=== PATIENT | male | born 1960 | race Caucasian/White ===

== ENCOUNTER 2017-03-01 12:37 | Emergency (ER) | payer BC, MEDICAID ==
[~2017-03-01] VITALS: Ht 177.8 cm; Wt 73.0 kg
[~2017-03-01 12:37] MED LIST: HYDR10TA16 PO; IBUP200C PO; ZANA4CAP PO
[2017-03-01 12:51] VITALS: BP 129/77; PULSE 102; RESP 17; TEMP 98.4; O2SAT 96
[2017-03-01] MEDS ORDERED: SODIUM CHLOR 0.9% 1000 ML INJ 1,000 ML IV SCH (13:59)
[2017-03-01] MEDS ORDERED: DICYCLOMINE HCL 20 MG/2 ML VIAL IM ONE (14:00)
[2017-03-01] MEDS ORDERED: SODIUM CHLORIDE 0.9% FLUSH 10 ML FLUSH IV FLUSH PRN (14:00)
[2017-03-01] MEDS ORDERED: ONDANSETRON HCL 4 MG/2 ML VIAL IVP ONE (14:00)
[2017-03-01] MEDS ORDERED: KETOROLAC TROMETHAMINE 30 MG/ML (IVP) VIAL IVP ONE (14:00)
[2017-03-01] MEDS ORDERED: IOHEXOL 350 MG/ML 10 ML VIAL (for RAD DIAG) IV ONE (14:30)
[2017-03-01 14:33] LABS: AUTOMATED NEUTROPHIL # 16.4 TH/MM3 (1.8-7.7); BASOPHIL # 0.4 TH/MM3 (0-0.2); EOSINOPHIL % 0.1 % (0.0-4.0); HEMATOCRIT 42.2 % (39.0-51.0); LYMPH % 5.9 % (9.0-44.0); LYMPHOCYTE # 1.2 TH/MM3 (1.0-4.8); MEAN CELL VOLUME 90.3 FL (80.0-100.0); MEAN CORPUSCULAR HEMOGLOBIN 29.7 PG (27.0-34.0); MEAN CORPUSCULAR HGB CONC 32.9 % (32.0-36.0); MONO % 7.7 % (0.0-8.0); NEUT % 84.3 % (16.0-70.0); PLATELET COUNT 224 TH/MM3 (150-450); RED BLOOD COUNT 4.68 MIL/MM3 (4.50-5.90); RED CELL DISTRIBUTION WIDTH 12.9 % (11.6-17.2); WHITE BLOOD COUNT 19.5 TH/MM3 (4.0-11.0)
[2017-03-01 14:35] LABS: BLOOD, URINE TRACE (NEG); GLUCOSE,URINE NEG (NEG); KETONE, URINE NEG (NEG); NITRITE,URINE NEG (NEG); PH, URINE 5.5 (5.0-8.5)
[2017-03-01 14:39] LABS: HEMO FLAGS AUTO DIFF
[2017-03-01 14:41] LABS: METHOD OF COLLECTION CLEAN CATCH; URINE COLOR YELLOW (YELLW/STRAW)
[2017-03-01 14:42] LABS: COMMENT (UR) CULT NOT INDICATED; CULTURE IF INDICATED CULT NOT INDICATED; SQUAMOUS EPITHELIAL CELL URINE 0-5 /hpf (0-5)
[2017-03-01 14:43] LABS: CHLORIDE 103 MEQ/L (98-107); POTASSIUM 4.5 MEQ/L (3.5-5.1); SODIUM (NA) 136 MEQ/L (136-145)
[2017-03-01 14:47] LABS: ANION GAP 7 MEQ/L (5-15); APTT (PATIENT) 25.7 SEC (24.3-30.1); BICARBONATE 25.9 MEQ/L (21.0-32.0); BLOOD UREA NITROGEN 20 MG/DL (7-18); PROTHROMBIN TIME - PATIENT 11.4 SEC (9.8-11.6)
--- NOTE | 2017-03-01 14:48 | PD ---
HPI Chief Complaint: GI Complaint Time Seen by Provider: 13:45 Travel History International Travel<30 days: No Contact w/Intl Traveler<30days: No Traveled to known affect area: No History of Present Illness HPI Patient is a 56-year-old male presents emergency Department with abdominal cramping of the lower quadrants and some bright red blood per rectum for the past day. He also endorses some nausea with dry heaving. No blood in the emesis and no bilious emesis. States she's not had these symptoms before denies any history of diverticulitis or surgical history. Also states he been feeling chills but no objective fevers. PFSH Past Medical History Arthritis: Yes Cancer: No Cardiovascular Problems: Yes (HTN) Diabetes: No Endocrine: No Genitourinary: Yes (hx of kidney) Hepatitis: No Hiatal Hernia: No Hypertension: Yes Immune Disorder: No Kidney Stones: Yes (3 EPISODES. LITHOTRIPSY X 1) Musculoskeletal: Yes (back problems) Neurologic: No Psychiatric: No Reproductive: No Respiratory: No Thyroid Disease: No Tetanus Vaccination: Unknown Influenza Vaccination: No Past Surgical History Abdominal Surgery: Yes (HERNIA REPAIR) AICD: No Body Medical Devices: LEFT URETEREAL STENT Cardiac Surgery: No Ear Surgery: No Endocrine Surgery: No Eye Surgery: No Genitourinary Surgery: Yes (lithotripsy renal stent placement) Joint Replacement: No Oral Surgery: No Pacemaker: No Thoracic Surgery: No Social History Alcohol Use: No Tobacco Use: Yes (1 PPD) Substance Use: No Allergies-Medications (Allergen,Severity, Reaction): Coded Allergies: No Known Allergies (Verified , 02/05/13) Reported Meds & Prescriptions Reported Meds & Active Scripts Active Bentyl (Dicyclomine HCl) 10 Mg Cap 10 Mg PO TID PRN Zofran Odt (Ondansetron Odt) 4 Mg Tab 4 Mg SL Q6HR PRN Flagyl (Metronidazole) 500 Mg Tab 500 Mg PO BID 7 Days Cipro (Ciprofloxacin HCl) 500 Mg Tab 500 Mg PO BID 7 Days Reported Lisinopril 40 Mg Tab 40 Mg PO DAILY Flexeril (Cyclobenzaprine HCl) 10 Mg Tab 5 Mg PO TID PRN Morphine ER (Morphine Sulfate) 15 Mg Tab 15 Mg PO QID PRN Review of Systems Except as stated in HPI: all other systems reviewed are Neg Physical Exam Narrative GENERAL: Well-developed well-nourished appears fairly uncomfortable. SKIN: Focused skin assessment warm/dry. HEAD: Atraumatic. Normocephalic. EYES: Pupils equal and round. No scleral icterus. No injection or drainage. ENT: No nasal bleeding or discharge. Mucous membranes pink and moist. NECK: Trachea midline. No JVD. CARDIOVASCULAR: Regular rate and rhythm. No murmur appreciated. RESPIRATORY: No accessory muscle use. Clear to auscultation. Breath sounds equal bilaterally. GASTROINTESTINAL: Abdomen soft, non-tender, nondistended. Hepatic and splenic margins not palpable. No CVA tenderness no hernia. MUSCULOSKELETAL: No obvious deformities. No clubbing. No cyanosis. No edema. NEUROLOGICAL: Awake and alert. No obvious cranial nerve deficits. Motor grossly within normal limits. Normal speech. PSYCHIATRIC: Appropriate mood and affect; insight and judgment normal. Data Data Last Documented VS Vital Signs Date Time Temp Pulse Resp B/P (MAP) Pulse Ox O2 Delivery O2 Flow Rate FiO2 03/01/17 16:36 83 16 124/67 (86) 96 03/01/17 12:51 98.4 Orders Orders Complete Blood Count With Diff (03/01/17 13:59) Comprehensive Metabolic Panel (03/01/17 13:59) Lipase (03/01/17 13:59) Prothrombin Time / Inr (Pt) (03/01/17 13:59) Act Partial Throm Time (Ptt) (03/01/17 13:59) Urinalysis - C+S If Indicated (03/01/17 13:59) Ct Abd/Pel W Iv Contrast(Rout) (03/01/17 13:59) Iv Access Insert/Monitor (03/01/17 13:59) Ecg Monitoring (03/01/17 13:59) Oximetry (03/01/17 13:59) Ondansetron Inj (Zofran Inj) (03/01/17 14:00) Sodium Chlor 0.9% 1000 Ml Inj (Ns 1000 M (03/01/17 13:59) Sodium Chloride 0.9% Flush (Ns Flush) (03/01/17 14:00) Electrocardiogram (03/01/17 13:59) Dicyclomine Inj (Bentyl Inj) (03/01/17 14:00) Ketorolac Inj (Toradol Inj) (03/01/17 14:00) Lactic Acid (03/01/17 15:02) Ciprofloxacin (Cipro) (03/01/17 16:15) Metronidazole (Flagyl) (03/01/17 16:15) Iohexol 350 Inj (Omnipaque 350 Inj) (03/01/17 14:30) Labs Laboratory Tests Test 03/01/17 14:24 03/01/17 15:10 White Blood Count 19.5 TH/MM3 Red Blood Count 4.68 MIL/MM3 Hemoglobin 13.9 GM/DL Hematocrit 42.2 % Mean Corpuscular Volume 90.3 FL Mean Corpuscular Hemoglobin 29.7 PG Mean Corpuscular Hemoglobin Concent 32.9 % Red Cell Distribution Width 12.9 % Platelet Count 224 TH/MM3 Mean Platelet Volume 7.7 FL Neutrophils (%) (Auto) 84.3 % Lymphocytes (%) (Auto) 5.9 % Monocytes (%) (Auto) 7.7 % Eosinophils (%) (Auto) 0.1 % Basophils (%) (Auto) 2.0 % Neutrophils # (Auto) 16.4 TH/MM3 Lymphocytes # (Auto) 1.2 TH/MM3 Monocytes # (Auto) 1.5 TH/MM3 Eosinophils # (Auto) 0.0 TH/MM3 Basophils # (Auto) 0.4 TH/MM3 CBC Comment AUTO DIFF Differential Comment AUTO DIFF CONFIRMED Prothrombin Time 11.4 SEC Prothromb Time International Ratio 1.0 RATIO Activated Partial Thromboplast Time 25.7 SEC Urine Collection Type CLEAN CATCH Urine Color YELLOW Urine Turbidity CLEAR Urine pH 5.5 Urine Specific [place] 1.022 Urine Protein TRACE mg/dL Urine Glucose (UA) NEG mg/dL Urine Ketones NEG mg/dL Urine Occult Blood TRACE Urine Nitrite NEG Urine Bilirubin NEG Urine Leukocyte Esterase NEG Urine RBC 4-9 /hpf Urine WBC 3-5 /hpf Urine Squamous Epithelial Cells 0-5 /hpf Microscopic Urinalysis Comment CULT NOT INDICATED Urine Collection Time 14:24 Blood Urea Nitrogen 20 MG/DL Creatinine 1.00 MG/DL Random Glucose 113 MG/DL Total Protein 7.2 GM/DL Albumin 3.6 GM/DL Calcium Level 8.8 MG/DL Alkaline Phosphatase 136 U/L Aspartate Amino Transf (AST/SGOT) 24 U/L Alanine Aminotransferase (ALT/SGPT) 36 U/L Total Bilirubin 0.6 MG/DL Sodium Level 136 MEQ/L Potassium Level 4.5 MEQ/L Chloride Level 103 MEQ/L Carbon Dioxide Level 25.9 MEQ/L Anion Gap 7 MEQ/L Estimat Glomerular Filtration Rate 77 ML/MIN Lipase 98 U/L Lactic Acid Level 1.3 mmol/L MDM Medical Decision Making Medical Screen Exam Complete: Yes Emergency Medical Condition: Yes Interpretation(s) EKG shows normal sinus rhythm left axis deviation, normal R-wave progression. Intervals within normal limits. No concerning ST segment changes. Borderline EKG. Differential Diagnosis Colitis, anemia, diverticulitis, diverticular bleeding, colon mass. Narrative Course Patient roomed emergency department, given pain medicine fluids. Reviewed the CAT scan and that certainly a dusky appearance of the descending colon, lactic acid was sent was negative. There is no pneumatosis intestinalis. The read from the radiologist was reviewed as below. Last 24 hours Impressions Abdomen/Pelvis CT 03/01/17 2203 Signed Impressions: Service Date/Time: Friday, March 01, 2017 14:47 - CONCLUSION: 1. Significant bowel wall thickening of the descending colon and diffuse colitis is of primary consideration. 2. Tiny left renal stone. Shanice Morse MD The patient now is feeling much better after medications given, discussed with him his white blood cell count elevated and could consider being admitted to the hospital for further workup at this point he would like to go home. Discussed empiric antibiotics symptomatic management and return to ED criteria. Believe he is stable for discharge at this time with department diagnosis of colitis which is likely inflammatory or infectious in nature. Discussed with him the need for colonoscopy in the future. Diagnosis Primary Impression: Colitis Referrals: Dionte Romo MD [facility] Med/Other Pt SpecificInfo: Prescription(s) given Scripts Dicyclomine (Bentyl) 10 Mg Cap 10 MG PO TID Y for ABDOMINAL CRAMPING, #20 CAP 0 Refills Prov: Evan Arriola MD 03/01/17 Ondansetron Odt (Zofran Odt) 4 Mg Tab 4 MG SL Q6HR Y for Nausea/Vomiting, #30 TAB 0 Refills Prov: Evan Arriola MD 03/01/17 Metronidazole (Flagyl) 500 Mg Tab 500 MG PO BID for Infection for 7 Days, TAB 0 Refills Prov: Evan Arriola MD 03/01/17 Ciprofloxacin (Cipro) 500 Mg Tab 500 MG PO BID for Infection for 7 Days, TAB 0 Refills Prov: Evan Arriola MD 03/01/17 Disposition: 01 DISCHARGE HOME Condition: Stable Evan Arriola MD Mar 01, 2017 14:47
[2017-03-01 14:50] LABS: ALT (GPT) 36 U/L (12-78); AST (GOT) 24 U/L (15-37); GLOMERULAR FILTRATION RATE 77 ML/MIN (>89)
[2017-03-01 14:51] LABS: TOTAL BILIRUBIN ADULT 0.6 MG/DL (0.2-1.0)
[2017-03-01 14:53] LABS: ALKALINE PHOSPHATASE 136 U/L (45-117)
[2017-03-01 15:01] LABS: SCAN/DIFF AUTO DIFF CONFIRMED
--- NOTE | 2017-03-01 15:14 | RADRPT ---
EXAM DATE/TIME: 03/01/2017 14:47 [facility] COMPARISON: No previous studies available for comparison. INDICATIONS : Lower abdominal pain, rectal bleeding. IV CONTRAST: 96 cc Omnipaque 350 (iohexol) IV ORAL CONTRAST: No oral contrast ingested. RADIATION DOSE: 6.83 CTDIvol (mGy) MEDICAL HISTORY : Hypertension. Renal calculi SURGICAL HISTORY : Lithotripsy and stents ENCOUNTER: Initial ACUITY: 1 day PAIN SCALE: 10/10 LOCATION: Bilateral lower abdomen. TECHNIQUE: Volumetric scanning of the abdomen and pelvis was performed. Using automated exposure control and ad justment of the mA and/or kV according to patient size, radiation dose was kept as low as reasonably achievable to obtain optimal diagnostic quality images. DICOM format image data is available electro nically for review and comparison. FINDINGS: CT Abdomen: The liver, spleen, pancreas, adrenals are unremarkable. There is no evidence for any appr eciable pathological adenopathy, free fluid, or bowel obstruction. Slight degree of somewhat linear irregular opacity is seen in bilateral lung bases including lingula and right middle lobe mostly cons istent with scarring. Chronic vascular calcifications are present involving the aorta, iliac arteries without any significant stenosis or aneurysmal dilatations for technique. There is a tiny approximat e 4-5 mm stone in the left kidney and there are tiny subcentimeter cysts in both kidneys. CT pelvis: There is no evidence for mass, abscess formation, or any significant adenopathy within the pelvis. The prostate gland is inhomogeneous and measures 3.3 x 4.8 cm in AP and transverse diameters and nonspecific. There is a tiny 3-4 mm bone island in left proximal femur. There is extensive bowel wall thickening with maximum wall thickness of almost 8 mm involving the descending colon which exte nds from the splenic flexure all the way down to sigmoid junction with haziness of the pericolonic fa t plane and slight fluid in the left paracolic gutter. Scattered diverticuli are present in the colon . CONCLUSION: 1. Significant bowel wall thickening of the descending colon and diffuse colitis is of primary consid eration. 2. Tiny left renal stone. Shanice Morse MD on March 01, 2017 at 15:08 Board Certified Radiologist. This report was verified electronically.
[2017-03-01] MEDS ORDERED: MORP1TAB24 PO (15:20)
[2017-03-01] MEDS ORDERED: CYCL1TAB29 PO (15:20)
[2017-03-01] MEDS ORDERED: LISI40TA PO (15:20)
[2017-03-01] MEDS ORDERED: DICY10 PO (16:11)
[2017-03-01] MEDS ORDERED: CIPR-9 PO (16:11)
[2017-03-01] MEDS ORDERED: METR-1 PO (16:11)
[2017-03-01] MEDS ORDERED: ZOFR4TAB3 SL (16:11)
[2017-03-01] MEDS ORDERED: CIPROFLOXACIN 500 MG TAB PO ONE (16:15)
[2017-03-01] MEDS ORDERED: metroNIDAZOLE 500 MG TAB PO ONE (16:15)
[2017-03-01 16:36] VITALS: BP 124/67; PULSE 83; RESP 16; O2SAT 96
--- NOTE | 2017-03-02 16:05 | EKG ---
Date Performed: 03/01/2017 Time Performed: 14:13:47 PTAGE: 56 years EKG: Sinus rhythm MARKED LEFT AXIS DEVIATION MODERATE INTRAVENTRICULAR CONDUCTION DELAY Compared to previous tracing, axis more leftward. TN interval is slightly longer ABNORMAL ECG PREVIOUS TRACING : 11/30/2012 11.33 DOCTOR: Casey Awan Interpretating Date/Time 03/02/2017 16:03:40
== END 2017-03-01 16:55 | disposition home or self-care (01) ==
LOC: PHED 12:37
DX: K52.9 Noninfective gastroenteritis and colitis, unspecified (principal); I10 Essential (primary) hypertension; F17.200 Nicotine dependence, unspecified, uncomplicated
CPT/HCPCS: 74177; 80053; 81001; 83605; 83690; 85025; 85610; 85730; 93005; 96361; 96372; 96374; 96375; 99285; J0500; J1885; J2405; J7030; Q9967